=== PATIENT | female | born 1995 | race Caucasian/White ===

== ENCOUNTER 2023-12-09 16:56 | Emergency (ER) | payer MEDICAID, SELFPAY ==
[2023-12-09 17:28] VITALS: BP 102/47; PULSE 76; RESP 18; TEMP 36.7; O2SAT 96; BMI 43.8
--- NOTE | 2023-12-09 17:50 | ED.FEMALEGU ---
HPI - Female Genitourinary General Chief complaint: Urogenital-Female Stated complaint: UTI symptoms Source: patient Mode of arrival: ambulatory Limitations: no limitations History of Present Illness HPI Narrative: Patient is a 28-year-old female who presents emergency department with concern for urinary tract infection dysuria frequency over the past 5 days, has been using OTC azo without relief. Denies associated fevers, chills, nausea, vomiting, hematuria, backwards/flank pain. Denies abnormal vaginal discharge. Denies possibility for Related Data Previous Rx's ?Medication ?Instructions ?Recorded cefuroxime axetil 500 mg tablet 500 mg PO BID #14 tabs 12/09/23 Allergies Allergy/AdvReac Type Severity Reaction Status Date / Time No Known Allergies Allergy Verified 12/09/23 17:29 Review of Systems Review of Systems: Yes all other systems are reviewed and are negative PMFSH Past Medical History Attestation statement: The following information was validated with the patient. Source: old records reviewed Physical Exam Vital Signs: Vital Signs: Last Vital Signs Temp 98.1 F 12/09/23 17:28 Pulse 76 12/09/23 17:28 Resp 18 12/09/23 17:28 BP 102/47 L 12/09/23 17:28 Pulse Ox 96 12/09/23 17:28 O2 Del Method Room Air 12/09/23 17:28 BMI result Body Mass Index 43.8 Appearance: Alert.?Oriented to person, place and time. No acute distress.?Normal affect.? CVS: Heart sounds normal. Normal heart rate and rhythm.? Pulses normal.?? Respiratory: No respiratory distress.? Lung sounds clear to auscultation bilaterally?? Abdomen: Soft and non-tender. Normoactive bowel sounds. No CVAT Skin: Skin warm and dry.? Normal skin color.? Neuro: Moves all extremities spontaneously. Ambulates with normal steady gait. Medical Decision Making Medical Decision Making MDM Narrative: Patient is a 28-year-old female who presents emergency department for evaluation of dysuria and urinary frequency as per HPI. Overall she appears well, nontoxic, afebrile. She has been clear full sentences. Abdominal examination is benign, no CVAT. Urinalysis is consistent with urinary tract infection, low suspicion for acute pyelonephritis, does not appear consistent with ureteral calculi/hydronephrosis. HCG is negative, abdominal examination benign, not consistent with /ectopic, unlikely TOA/ovarian torsion. Stable for discharge home. Sent prescription for antibiotics pharmacy, encouraged to increase oral fluid intake. Differential Diagnosis Differential Diagnoses: The differential diagnosis associated with the presentation includes (See narrative above) Lab Data MDM Lab Attestation statement: I reviewed the patient's lab results. (See narrative above) Labs: Lab Results 12/09/23 Range/Units 17:59 Urine Color Dark Yellow Urine Appearance Cloudy Urine pH 6.5 (5.0-9.0) Ur Specific Phillips >= 1.030 H (1.005-1.025) Urine Protein 30 (1+) H (Neg-Trace) mg/dL Urine Glucose (UA) Negative (Negative) mg/dL Urine Ketones Trace (Negative) mg/dL Urine Blood Negative (Negative) Urine Nitrite Positive H (Negative) Ur Leukocyte Esterase Moderate (2+) H (Negative) Urine RBC 0-2 (0-2) /HPF Urine WBC 11-20 (0-5) /HPF Ur Squamous Epith Cells 3-5 (0-2) /HPF Urine Bacteria 2+ (None Seen) Hyaline Casts 0-2 (0-2) /LPF Urine Test NEGATIVE (NEGATIVE) External Record Review External record reviewed: Outpatient record Tests considered The following testing was considered but not selected: Deferred CT abdomen pelvis, unlikely to have acute intra-abdominal pathology see narrative above Prescription Management I considered prescription management with: Antibiotic Discharge Plan Discharge Clinical Impression: Urinary tract infection Patient Disposition: Home, Self-Care Instructions: Urinary Tract Infection in Women (ED) Prescriptions: New cefuroxime axetil 500 mg tablet 500 mg PO BID Qty: 14 0RF Referrals: Physician,None [Primary Care Provider] - Print Language: Iranian
[2023-12-09 18:12] LABS: Appearance Urine Cloudy; Color Urine Dark Yellow; Glucose Urine UA Negative (Negative); Leukocyte Esterase Urine Moderate (2+) (Negative); Nitrite Urine Positive (Negative); PH 6.5 (5.0-9.0); Specific Gravity - Urine >= 1.030 (1.005-1.025); UMIC TRIGGER UACC YES; UPreg QC Valid YES; Urine Blood Negative (Negative); Urine Ketones Trace mg/dL (Negative); Urine Pregnancy NEGATIVE (NEGATIVE); Urine Protein 30 (1+) mg/dL (Neg-Trace)
[2023-12-09 18:35] LABS: Bacteria Urine 2+ (None Seen); Hyaline Casts Urine 0-2 /LPF (0-2); RBC Urine 0-2 /HPF (0-2); UACC Culture Trigger YES
[2023-12-09 18:57] VITALS: BP 122/62; PULSE 65; RESP 16; TEMP 36.7; O2SAT 95
== END 2023-12-09 19:19 | disposition home or self-care (01) ==
LOC: HO.ED 19:04
PROVIDERS: Nurse Practitioner Family; Emergency Provider Emergency Medicine
DX: N39.0 Urinary tract infection, site not specified (principal); R30.0 Dysuria; R35.0 Frequency of micturition; Z79.899 Other long term (current) drug therapy
CPT/HCPCS: 81001; 81025; 87086; 87088; 87186; 99282; 99283